=== PATIENT | male | born 1990 | race Caucasian/White ===

== ENCOUNTER 2019-04-20 01:33 | Emergency (ER) | payer OTHER, SELFPAY ==
[~2019-04-20] VITALS: Ht 175.3 cm; Wt 86.4 kg
[2019-04-20] MEDS ORDERED: MELATAB2 PO (01:37)
[2019-04-20 02:26] LABS: INFLUENZA A AMPLIFICATION NEGATIVE (NEGATIVE); INFLUENZA B AMPLIFICATION NEGATIVE (NEGATIVE)
[2019-04-20 06:41] LABS: BASO % 0.3 % (0.0-1.0); EOS # 0.1 10^3/uL (0.0-0.5); EOS % 1.3 % (0.0-3.0); HEMATOCRIT 42.4 % (42.0-52.0); HEMOGLOBIN 13.4 g/dl (13.5-17.5); LYMPH # 2.2 10^3/uL (1.5-5.0); LYMPH % 35.8 % (24.0-44.0); MEAN CORPUSCULAR HGB CONC 31.6 g/dl (32.0-36.5); MEAN CORPUSCULAR VOLUME 82.2 fl (80.0-96.0); MONO # 0.5 10^3/uL (0.0-0.8); MONO % 8.5 % (0.0-5.0); NEUTROPHILS # 3.3 10^3/uL (1.5-8.5); NEUTROPHILS % 53.9 % (36.0-66.0); PLATELET COUNT, AUTOMATED 195 10^3/uL (150-450); RED BLOOD COUNT 5.16 10^6/uL (4.30-6.10)
[2019-04-20 06:59] LABS: ERYTHROCYTE SEDIMENTATION RATE 26 mm/hr (0-15)
[2019-04-20 07:12] LABS: C REACTIVE PROTEIN QUANTITATIV 1.86 MG/DL (0.00-0.30); CK-MB VALUE MASS 1.4 NG/ML (<3.6); CPK CREATINE PHOSPHOKINASE 605 U/L (39-308); MB/CK RELATIVE INDEX 0.23 (< OR =4); TROPONIN I < 0.02 NG/ML (< 0.10)
--- NOTE | 2019-04-20 07:37 | REP ---
Clinical: Chest pain and cough . Comparison: None . Technique: PA and lateral. Findings: The mediastinum and cardiac silhouette are normal. The lung denney are clear and without acute consolidation, effusion, or pneumothorax. The skeletal structures are intact and normal. Impression: 1. No acute cardiopulmonary process. Electronically Signed by Price Medrano MD 04/20/2019 07:29 A
[2019-04-20] MEDS ORDERED: NS 500 ML IV ONE (07:45)
[2019-04-20 08:07] VITALS: BP 117/58
--- NOTE | 2019-04-21 04:50 | ECGEPIP ---
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
== END 2019-04-20 08:08 | disposition home or self-care (01) ==
LOC: M ED 01:33
DX: R00.1 Bradycardia, unspecified (principal); J00 Acute nasopharyngitis [common cold]; J06.9 Acute upper respiratory infection, unspecified; B34.9 Viral infection, unspecified; R07.89 Other chest pain; R05 Cough; R06.02 Shortness of breath; R74.8 Abnormal levels of other serum enzymes